=== PATIENT | male | born 1960 | race Caucasian/White ===

== ENCOUNTER 2021-11-02 09:59 | Outpatient (CLI) | payer MEDICAID | END 2021-11-02 18:04 | disposition home or self-care (01) | LOC: SCT 09:59 | PROVIDERS: ATTEND Internal Medicine | DX: K82.8 Other specified diseases of gallbladder (principal); N28.89 Other specified disorders of kidney and ureter; K62.89 Other specified diseases of anus and rectum; K63.89 Other specified diseases of intestine | CPT/HCPCS: 76376 ==

== ENCOUNTER 2022-11-16 09:01 | Outpatient (CLI) | payer MEDICAID | END 2022-11-16 18:55 | disposition home or self-care (01) | LOC: SCT 09:01 | PROVIDERS: ATTEND Internal Medicine | DX: M47.812 Spondylosis without myelopathy or radiculopathy, cervical region (principal); G93.89 Other specified disorders of brain; B43.2 Subcutaneous pheomycotic abscess and cyst; R29.6 Repeated falls; M48.02 Spinal stenosis, cervical region | CPT/HCPCS: 70450-TC; 72125-TC; 76376 ==